=== PATIENT | female | born 1990 | race Caucasian/White ===

== ENCOUNTER 2020-03-26 07:53 | Day surgery (SDC) | payer BC ==
[2020-03-19 12:31] LABS: Urine Appearance CLEAR; Urine Bilirubin NEGATIVE (NEG); Urine Blood NEGATIVE (NEG); Urine Color YELLOW; Urine Glucose NEGATIVE (NEG); Urine Protein NEGATIVE (NEG); Urine Specific Gravity 1.015 (1.005-1.030); Urine Urobilinogen 0.2 mg/dL (0.2-1.0)
[2020-03-19 12:32] LABS: Absolute Lymphocytes (CBC) 2.1 K/uL (0.7-4.9); Basophils % 1.1 % (0-1.3); Hematocrit 40.2 % (36.0-45.0); Lymphocytes % 39.2 % (15.3-44.8); MPV 7.6 fL (7.6-11.3); RBC Red Blood Cell Count 4.78 M/uL (3.86-4.86)
[2020-03-19 12:41] LABS: Urine Microscopic Reflex ORDER UMIC
[2020-03-19 12:47] LABS: Urine Bacteria NONE SEEN /HPF (<20); Urine Culture Reflex Order REFLEXED; Urine RBC <5 /HPF (NONE SEEN)
[2020-03-25 10:41] LABS: Specific Gravity <= 1.005 (1.005-1.030)
[~2020-03-26 07:53] MED LIST: METHYLENE BLUE 0.5% 10 ML AMP ONE
[2020-03-26] MEDS ORDERED: LIDOCAINE 2% MPF 5 ML VIAL ONE (08:12)
[2020-03-26] MEDS ORDERED: FENTANYL CITR 100 MCG/2 ML ONE ×2 (08:12→09:48)
[2020-03-26] MEDS ORDERED: dexAMETHasone 10 MG/ML VIAL ONE (08:12)
[2020-03-26] MEDS ORDERED: propofoL 200 MG/20 ML VIAL IV ONE (08:12)
[2020-03-26] MEDS ORDERED: ONDANSETRON 4 MG/2 ML VIAL ONE ×2 (08:12→12:00)
[2020-03-26] MEDS ORDERED: ROCURONIUM 50 MG/5 ML VIAL IV ONE (08:12)
[2020-03-26] MEDS ORDERED: MIDAZOLAM HCL 2 MG/2 ML INJ ONE (08:12)
[2020-03-26] MEDS: BUPIVACAINE 0.25% PF 30 ML VIAL ONE ×2 (08:17→09:25)
[2020-03-26] MEDS ORDERED: Ringers Lactate 1,000 ML IV ONE ×2 (08:20→11:02)
[2020-03-26] MEDS ORDERED: SCOPOLAMINE HYDROBROMIDE PATCH TD ONE (08:20)
[2020-03-26] MEDS ORDERED: KETOROLAC 30 MG/ML INJ ONE (10:47)
[2020-03-26] MEDS: MEPERIDINE HCL 25 MG/ML SYR ONE ×2 (11:30→11:40)
[2020-03-26] MEDS: HYDROMORPHONE HCL 1 MG/ML INJ ONE ×2 (11:52→11:57)
[2020-03-26] MEDS ORDERED: MORPHINE 4 MG/ML SYR ONE (12:28)
[2020-03-26 12:37] VITALS: TEMP 97.2
[2020-03-26] MEDS ORDERED: HYDROCODONE/APAP 5/325 MG TAB ONE (12:59)
[2020-03-26 13:53] VITALS: BP 108/62; O2SAT 98
--- NOTE | 2020-04-02 02:46 | OP ---
Date of Procedure: 03/26/2020 Surgeon: Katerina Wilder MD Preoperative Diagnoses: Pelvic pain, endometriosis of the pelvic peritoneum. Postoperative Diagnoses: Pelvic pain; endometriosis; bowel adhesions, sigmoid to the left sidewall a nd the left tube and right ovary; small bowel adhesions to the right pelvic sidewall as well as to th e base of the right ovary; nodular, partially occluded left tube. Procedures Performed: Diagnostic hysteroscopy, diagnostic laparoscopy, lysis of the bowel adhesions, enterolysis of small and large bowel to greater than 50% of the case, chromotubation of the left tub e, left salpingectomy, right oophorectomy, and endometriosis removal from the surface, left ovariolys is. Anesthesia: General endotracheal. Specimens: Right ovary with endometriosis and left tube. Complications: No complications. Drains: No drains. Condition: Stable. Urine Output: 200. Estimated Blood Loss: Minimal. Intraoperative Consultation: Dr. Bauer for the bowel adhesions. Description Of Procedure: After informed consent was verified, the patient was taken back to the OR. No antibiotics were indicated for these procedures she was going to have. After consents were obta ined, her sister was present by the side. She was then taken to the OR and placed in supine fashion on the operating table, general anesthesia was given, placed in a dorsal lithotomy position using All en stirrups. Abdomen, vulva, vagina, and perineum were prepped and draped in a sterile fashion. Fol ey was placed to drain the bladder. A small speculum was placed to open the vaginal canal to expose the cervix. The anterior lip was grasped with single Allis clamps and dilator was used to open up th e cervical canal. Then, diagnostic SlimLine hysteroscope was introduced into the uterus to visualize the uterine cavity. Cavity was unremarkable. The scope was removed. Diagnostic VCare was introduc ed into the uterus and fixed in place. This area was then draped. 1 cm infraumbilical incision was made with a scalpel using the open laparoscopy technique. Fascia wa s incised, tagged with 0 Vicryl sutures. S-retractors were placed. Peritoneum picked up, incised sh arply, and then peritoneum was entered with S-retractors. Julio César was introduced, insufflated. Site of entry was checked, unremarkable. Right upper quadrant omental adhesions and some bowel adhesions after the patient's upper abdominal surfaces were well visualized and no endometriotic implants were seen. Then, the patient was placed in Trendelenburg and bowel adhesions of the sigmoid colon all the way from the left tube, periovarian adhesions to the left lateral sidewall, and the sigmoid adhesion s all the way down along the ureter close to the distal uterosacral ligament. Then, small bowel adhe sions were seen very close to the right lateral wall at the inferior aspect of the infundibulopelvic ligament and distal and proximal part of the ureter at the crossing of the iliacs. Five left lower quadrant suprapubic and right lower quadrant trocars were placed under direct vision after injecting Marcaine at the level of the skin and the fascia. The neuro bundle was present. There were some adhesions of this small bowel in the right lower quadrant as well. All these adhesio ns were taken down with sharp dissection with the help of scissors, so I can isolate and be able to w ell visualize the IP ligament. Once this was done, then the small bowel was retracted superiorly int o the abdomen. It had to be released further into the right lower quadrant in order for it to be mob ilized. So, when the patient was placed in Trendelenburg and the oophorectomy was being performed th at the bowel was not in my way. Once this was done and there was no endometriosis seen in this regio n, the left infundibulopelvic ligament was isolated and cauterized and the ovary was resected. The e ndometriosis appearing lesions were on the outer aspect and the lower pole of the ovary. This was pe rformed after talking to her mother regarding the diagnosis. She had chromotubation as well at this time and the left tube had very slight seepage of the methylene blue. So, given the distortion seen in the left tube, called the mother and consent was obtained for left salpingectomy and right oophore ctomy and then the surgery was performed. The sigmoid colon adhesions were first taken down from the left lateral wall below the natural attach ment and the tube was from the sigmoid colon and then the ovary was as well with sharp dissection. Then, in the left gutter, the space was opened up till the natural space was ident ified. Then, dissection was done sharply with the help of scissors to take down the colon from the l ateral wall carefully identifying the ureter and keeping it safe and leaving to the lateral aspect wh ile the bowel was taken out all the way to the distal uterosacral ligament on the left side. Once th e bowel was all mobilized and normal anatomy was restored, the course of the ureter was well visualiz ed. Then, the chromotubation was performed, and once the chromotubation results were seen and the mo m was called, then proceeded with oophorectomy and the left salpingectomy with the help of the LigaSu re device. The specimens were placed in an EndoCatch bag. The bag was removed through the umbilical trocar. Thorough irrigation and suction were performed, there was excellent hemostasis, and left ov ariolysis was performed at this time to release the ovary from the lateral sidewall. Once this was d one then thorough irrigation and suction, at least a liter of saline was used, then placed Interceed in the left paracolic gutter where the bowel was adhesed to the left side as well as the right paraco lic gutter on the sidewalls so that the small bowel did not adhese to the area of the ovary. After t horough inspection was done and all the pedicles were hemostatic, the patient was taken out of [facility], gas was desufflated, trocars were removed. Sites of entry checked and unremarkable. Gas wa s desufflated. Julio César was removed. Fascia at the umbilicus was closed with 0 Vicryl [id number] fashion. Then, all the 5 incisions were closed with the help of interrupted 4-0 Vicryl sutures at t he skin. The umbilical skin also was closed in a similar fashion. Injection was done again at the f ascia and the skin levels with 0.25% Marcaine. At the end of the case, VCare and Kinney were removed. Instrument, needle, and sponge counts were correct at the end of the case. The patient tolerated t he procedure well. One-week followup with me. Dr. Bauer was consulted to check the integrity of the small bowel after the dissection was performed as well as the large bowel and those were completely intact and he advised not to interfere with any minor superficial lacerations from taking down the adhesions on the small bowel. CATHRYN/HUGOL Voice ID: [id number] Report ID: [id number]
== END 2020-03-26 14:10 | disposition home or self-care (01) ==
LOC: OR 07:53
PROVIDERS: ATTEND Obstetrics & Gynecology
PROC: 3E1P78Z Irrigation of Female Reproductive using Irrigating Substance, Via Natural or Artificial Opening (ICD-10-PCS; 2020-03-26)
PROC: 0UB14ZZ Excision of Left Ovary, Percutaneous Endoscopic Approach (ICD-10-PCS; 2020-03-26)
PROC: 0UT04ZZ Resection of Right Ovary, Percutaneous Endoscopic Approach (ICD-10-PCS; 2020-03-26)
PROC: 0UT64ZZ Resection of Left Fallopian Tube, Percutaneous Endoscopic Approach (ICD-10-PCS; 2020-03-26)
PROC: 0UJD8ZZ Inspection of Uterus and Cervix, Via Natural or Artificial Opening Endoscopic (ICD-10-PCS; principal; 2020-03-26 09:00)
DX: N80.3 Endometriosis of pelvic peritoneum (principal); N94.89 Other specified conditions associated with female genital organs and menstrual cycle; E28.2 Polycystic ovarian syndrome; K66.0 Peritoneal adhesions (postprocedural) (postinfection); F41.9 Anxiety disorder, unspecified; J45.909 Unspecified asthma, uncomplicated; Z88.0 Allergy status to penicillin; Z91.040 Latex allergy status; Z20.828 Contact with and (suspected) exposure to other viral communicable diseases
CPT/HCPCS: 58661; 58350; 58662; 87088; 85025; 87086; 36415 ×2; 86900; 86850; 84703; 81025; 86901; 88302; 88305; 58555; U0002; J2704; J2250; J3010 ×2; J1100; J2175; J1170; J7120 ×2; J2405 ×2; 81003; 81015

== ENCOUNTER 2020-07-31 17:08 | Emergency (ER) | payer SELFPAY ==
--- NOTE | 2020-07-31 19:27 | ER ---
Nurse's Notes [facility] Name: Starr Paris Age: 29 yrs Sex: Female : 1990 Arrival Date: 07/31/2020 Time: 17:15 Bed Waiting Private MD: Diagnosis: Presentation: 07/31 17:25 Chief complaint: Patient states: Cough, SOB, chest pain, fatigue, RUFF 2 hours [employer]EP DOWN [employer]. ll1 Taking care of her mom and dad that have covid. No fever. Coronavirus screen: Client denies travel out of the [place] in the last 14 days. congestion, cough unrelated to allergies, difficulty breathing, fatigue, shortness of breath, Client presents with at least one sign or symptom that may indicate coronavirus-19. Standard/surgical mask placed on the client. Ebola Screen: Patient denies travel to an Ebola-affected area in the 21 days before illness onset. Initial Sepsis Screen: Does the patient meet any 2 criteria? HR > 90 bpm. No. Patient's initial sepsis screen is negative. Does the patient have a suspected source of infection? Yes: Productive cough/pneumonia. Risk Assessment: Do you want to hurt yourself or someone else? Patient reports no desire to harm self or others. Onset of symptoms was July 31, 2020. 17:25 Method Of Arrival: Ambulatory 1 17:25 Acuity: JACEY 3 ll1 Historical: - Allergies: 17:28 PENICILLINS; ll1 17:28 Latex, Natural Rubber; ll1 - PMHx: 17:28 asthma-2 intubations; ll1 - PSHx: 17:28 lap. hysteroscopy; stage 4 endometriosis; ll1 - Immunization history:: Flu vaccine is not up to date. - Social history:: Smoking status: Patient denies any tobacco usage or history of. Vital Signs: 17:25 BP 139 / 99; Pulse 94; Resp 18; Temp 97.7; Pulse Ox 97% on R/A; Weight 88.45 kg; Height ll1 5 ft. 4 in. (162.56 cm); Pain 7/10; 17:25 Body Mass Index 33.47 (88.45 kg, 162.56 cm) ll1 ED Course: 17:15 Patient arrived in ED. ds1 17:27 Triage completed. ll1 17:28 Arm band placed on. ll1 19:09 Francisco, Antonia, BELT FIXER-C [facility]. kb 19:09 Jony Almaraz MD is Attending Physician. kb 19:15 Patient Not in lobby or restroom when called to ED room. ll1 19:27 Patient Not in lobby or restroom when called back to ED room. ll1 Administered Medications: No medications were administered Outcome: 19:26 Patient left the ED. ll1 Signatures: Antonia Singh FNP-C FNP-Ckb Sanford, Demi ds1 Judith Rogel, RN RN ll1
[2020-07-31 19:38] VITALS: BP 139/99; TEMP 97.7; O2SAT 97
== END 2020-07-31 19:26 | disposition left against medical advice (07) ==
LOC: ER 17:08
DX: R05 Cough (principal); Z53.21 Procedure and treatment not carried out due to patient leaving prior to being seen by health care provider; Z88.0 Allergy status to penicillin; Z91.040 Latex allergy status
CPT/HCPCS: 99281

== ENCOUNTER 2023-11-30 07:43 | Day surgery (SDC) | payer BC, OTHER ==
[2023-11-28 09:19] LABS: Absolute Basophils 0.1 K/uL (0-0.5); Absolute Eosinophils 0.2 K/uL (0-0.5); Absolute Lymphocytes (CBC) 2.4 K/uL (0.7-4.9); Absolute Monocytes 0.7 K/uL (0.1-1.3); Absolute Neutrophil 3.7 K/uL (1.8-8.0); Basophils % 1.8 % (0-1.3); Eosinophils % 3.5 % (0-4.4); Hematocrit 37.9 % (36.0-45.0); Hemoglobin 12.5 g/dL (12.0-15.0); Lymphocytes % 33.5 % (15.3-44.8); MCH 27.7 pg (27.0-35.0); MCHC 32.9 g/dL (32.0-36.0); MCV 84.1 fL (80-100); MPV 6.4 fL (7.6-11.3); Neutrophils % 51.2 % (41.7-73.7); Nucleated Red Blood Cells % 0.1 % (0-0); Platelets 411 thou/uL (152-406); Red Cell Distribution Width 14.3 % (12.1-15.2)
[2023-11-28 09:31] LABS: Anion Gap 6.9 mEq/L (5.0-15.0); Potassium 3.9 mEq/L (3.5-5.1)
--- NOTE | 2023-11-28 14:10 | EKG ---
Test Date: 2023-11-28 Test Time: 09:08:45 Wheel Lacer And Truer: JAYSON MEASUREMENT RESULTS: Intervals: Rate: 85 VA: 158 QRSD: 80 QT: 358 QTc: 426 [place]: P: 62 VA: 158 QRS: 80 T: -19 INTERPRETIVE STATEMENTS: Normal sinus rhythm Nonspecific T wave abnormality Abnormal ECG No previous ECG available for comparison Electronically Signed On 11-28-23 14:09:23 CDT by Bossman Montero
[2023-11-30] MEDS ORDERED: OXYMETAZOLINE HCL 0.05% 15ML NAS ONE ×2 (08:13→11:21)
[2023-11-30] MEDS ORDERED: BACITRACIN OINTMENT 14 GM TUBE TOP ONE (08:13)
[2023-11-30] MEDS: Ringers Lactate 1,000 ML IV ONE (08:15)
[2023-11-30] MEDS: FAMOTIDINE 20 MG/2 ML VIAL IV ONE (08:18)
[2023-11-30] MEDS ORDERED: dexAMETHasone 10 MG/ML VIAL ONE (09:52)
[2023-11-30] MEDS ORDERED: ONDANSETRON 4 MG/2 ML VIAL ONE (09:52)
[2023-11-30] MEDS ORDERED: MIDAZOLAM HCL 2 MG/2 ML INJ ONE (09:52)
[2023-11-30] MEDS ORDERED: LIDOCAINE 2% MPF 5 ML VIAL ONE (09:52)
[2023-11-30] MEDS ORDERED: propofoL 200 MG/20 ML VIAL IV ONE (09:52)
[2023-11-30] MEDS ORDERED: FENTANYL CITR 100 MCG/2 ML ONE (09:52)
[2023-11-30] MEDS ORDERED: ROCURONIUM 50 MG/5 ML VIAL IV ONE (09:52)
[2023-11-30] MEDS ORDERED: SUGAMMADEX SODIUM 200 MG/2 ML VIAL IV ONE (10:02)
[2023-11-30] MEDS ORDERED: DEXMEDETOMIDINE HCL 200 MCG/2 ML VIAL ONE (10:03)
[2023-11-30] MEDS ORDERED: NA CHLORIDE 0.9% 100 ML ONE (10:03)
[2023-11-30] MEDS: LIDOCAINE HCL/EPINEPHRINE 20 ML MDV ONE (10:06)
[2023-11-30] MEDS: SCOPOLAMINE HYDROBROMIDE PATCH TD ONE (10:14)
[2023-11-30] MEDS: CLINDAMYCIN 900MG/D5W 900 MG/50 ML IVPB IV ONE (10:55)
[2023-11-30] MEDS ORDERED: SCOPOLAMINE HYDROBROMIDE PATCH TD ONE (11:47)
[2023-11-30] MEDS ORDERED: TRIAMCINOLONE ACETON 40 MG/ML VIAL ONE (12:27)
[2023-11-30] MEDS: HYDROMORPHONE HCL 1 MG/ML INJ ONE ×2 (13:40→13:55)
[2023-11-30] MEDS: FENTANYL CITR 100 MCG/2 ML ONE (14:15)
[2023-11-30 14:40] VITALS: TEMP 97
[2023-11-30] MEDS: PROMETHAZINE INJ 25 MG/ML AMP ONE (15:06)
[2023-11-30] MEDS: HYDROCODONE/APAP 7.5/325 MG TAB ONE (15:47)
[2023-11-30 17:51] VITALS: BP 142/88; O2SAT 97
--- NOTE | 2023-12-05 05:49 | OP ---
Date of Procedure: 11/30/2023 Surgeon: MARITZA ORONA Primary Care Physician: Unknown. Preoperative Diagnoses: 1.Recurrent acute maxillary and ethmoid sinusitis. 2.Nasal septal deviation. 3.Right sascha bullosa. 4.Bilateral hypertrophy of inferior nasal turbinates. Postoperative Diagnoses: 1.Recurrent acute maxillary and ethmoid sinusitis. 2.Nasal septal deviation. 3.Right sascha bullosa. 4.Bilateral hypertrophy of inferior nasal turbinates. Procedure: 1.Stereotactic CT image guidance system. 2.Bilateral sinus endoscopy. 3.Bilateral maxillary sinus balloon dilation. 4.Bilateral maxillary sinus lavage via cannulation. 5.Excision of right sascha bullosa. 6.Endoscopic septoplasty. 7.Bilateral submucosal ablation of inferior turbinates with Coblation. Anesthesia: General endotracheal anesthesia was administered. I also infiltrated approximately 12 m L of 1% lidocaine with 1:100,000 epinephrine into bilateral nasal septal mucosa, bilateral inferior t urbinate mucosa, bilateral axilla of middle turbinates, and bilateral uncinate processes. Specimens: Septal cartilage and bone removed, but not sent to Pathology. Estimated Blood Loss: Approximately 25 to 30 mL. Findings: Bilateral nasal obstruction secondary to bilateral inferior turbinate hypertrophy, large r ight sascha bullosa, bilateral maxillary infundibulum obstruction secondary to enlarged middle turbin ates, bilateral maxillary sinus effusions, bilateral ethmoid bulla inflammation and ethmoid sinus eff usion, bilateral nasal septal deviation with large left septal spur, and right midseptal superior car tilaginous deviation. Complications: None. Disposition: Stable. The patient tolerated the procedure well. Indication For Procedure: Patient is a pleasant 33-year-old female who presented to my outpatient cl [facility] on several occasions for recurrent sinusitis involving bilateral maxillary and ethmoid sinuses. CTA scan of the paranasal sinuses as well as my exam demonstrated bilateral nasal septal deviation a nd nasal obstruction and bilateral inferior turbinate hypertrophy and bilateral maxillary and ethmoid sinus mucosal thickening/effusion at least 3 mm in thickness. Her condition has been refractory to multiple rounds of antibiotics, thus these were indications to bring the patient to operative suite f or the above-mentioned procedure. She understood. All questions were answered. Risks versus benefi ts and complications were explained in detail and a consent form was signed which was placed on the c dinero. Description Of Procedure: The patient was transferred from the preoperative holding area to the oper ative suite by Anesthesia placed on the operating table in supine, sedated, and intubated in normal f ashion. Table was rotated at 180 degrees. I infiltrated approximately 8 mL of 1% lidocaine with 1:1 00,000 epinephrine into bilateral nasal septal and inferior turbinate mucosa. Afrin-soaked nasal ple dgets were introduced into bilateral nasal cavities and the patient was sterilely prepped and draped. The patient was then calibrated to the stereotactic CT image guidance system and tested it working ap propriately. Afrin-soaked nasal pledgets were removed and a 0-degree rigid nasal endoscope was intro duced in bilateral nasal cavities and photo documentation obtained. Our attention was placed to left maxillary sinus in which the natural ostium was located by infiltrating approximately 1 to 2 mL of 1 % lidocaine with 1:100,000 epinephrine at the left middle turbinate axilla and uncinate process and t hen reflecting in the middle turbinates medially with a Laurel elevator exposing the natural ostium. This was also confirmed with image guidance. The maxillary balloon was gently inserted into the left maxillary sinus and inflated twice to 12 mmHg and then deflated and removed. Cyclone irrigation sys tem was used for lavage. It was introduced into the left maxillary sinus and the left maxillary sinu s was lavaged with approximately 90 mL of sterile saline. Sinus effusion was removed. The Cyclone l avage system was removed from the left nasal cavity. Attention was placed to the right maxillary sin us in which the endoscope was introduced and the patient had a very large right middle turbinate and sascha bullosa. Thus, this was excised utilizing endoscopic scissors and Brooke forceps. Hemosta sis was achieved with suction Bovie on a setting of 20 for coagulation. I then was able to easily ac cess the right maxillary sinus utilizing the balloon and with the help of the image guidance. The ba lloon was then gently inserted into the right maxillary sinus, inflated it to 12 mmHg and then deflat ed and removed. The right maxillary sinus was lavaged with approximately 90 mL of sterile saline uti lizing the Cyclone irrigation system. was used. The lavage system was removed. Sinus ef fusion was suctioned. I then turned my attention to the left ethmoid bulla which was inflamed. I ut ilized a Tricut 4.3 microdebrider blade and this was entered into the ethmoid bulla and left anterior ethmoidectomy was performed on a setting of 3000 rpm. The microdebrider was removed and inserted in to the right nasal cavity and I entered the right ethmoid bulla utilizing the microdebrider Tricut an d right anterior ethmoidectomy was performed. Next, my attention was placed to the septum in which a modified Juancarlos incision was made into the le ft nasal septal mucosa down to the level of the perichondrium of the cartilaginous septum. The mucos a was elevated with a Laurel elevator and then a crossover incision was made with a #15 blade scalpel and the right nasal septal mucosa was dissected off the cartilaginous and bony septum. I was then ab le to isolate the cartilage and bone with a long nasal speculum and then anterior superior and inferi or cuts were made with a #15 blade scalpel and obstructed bone and cartilage were removed with Roddy ni forceps. A large left inferior septal spur to be removed with hammer and catie and Brooke fo rceps. I then reapproximated the nasal septal flaps in a box like fashion with 4-0 plain gut suture on a straight Karl needle, followed by mucosal incisional reapproximation with 4-0 plain gut suture in a continuous running fashion. My attention was then placed to the inferior turbinates, whereby th e anterior face of the left inferior turbinate was entered with the Coblation wand and a submucous po cket was created between the mucosa and bone. I then performed Coblation on 7 for ablation and 3 for coagulation of the left inferior turbinate. I then repeated this process on the right by entering t he anterior face of the right inferior turbinate mucosa creating submucous pockets between the mucosa and the bone and I ablated on the setting of 7 and coagulated on the setting of 3 and right inferior turbinate submucosal ablation was performed. Next, I coated MeroGel packs with Kenalog 10 mg/mL and inserted the packs at the area of the anterior ethmoidectomy to prevent scarring. This was followed by bilateral Guerrero splints which were inserted after coating with antibiotic ointment and securing the splints with a 2-0 Prolene suture on a strai ght Karl needle at the anterior septum. A mustache dressing was placed. She tolerated the procedur e well. She will be discharged home on antibiotic analgesic medication, will follow up in 10 days or sooner if needed. KEM/VAIBHAV Voice ID: [id number] Report ID: [id number]
== END 2023-11-30 16:20 | disposition home or self-care (01) ==
LOC: OR 07:43
PROVIDERS: ATTEND Otolaryngology Facial Plastic Surgery
PROC: 095L8ZZ Destruction of Nasal Turbinate, Via Natural or Artificial Opening Endoscopic (ICD-10-PCS; 2023-11-30)
PROC: 09QR4ZZ Repair Left Maxillary Sinus, Percutaneous Endoscopic Approach (ICD-10-PCS; 2023-11-30)
PROC: 09QQ4ZZ Repair Right Maxillary Sinus, Percutaneous Endoscopic Approach (ICD-10-PCS; 2023-11-30)
PROC: 09TL8ZZ Resection of Nasal Turbinate, Via Natural or Artificial Opening Endoscopic (ICD-10-PCS; 2023-11-30)
PROC: 09BV8ZZ Excision of Left Ethmoid Sinus, Via Natural or Artificial Opening Endoscopic (ICD-10-PCS; 2023-11-30)
PROC: 09BU8ZZ Excision of Right Ethmoid Sinus, Via Natural or Artificial Opening Endoscopic (ICD-10-PCS; 2023-11-30)
PROC: 09BM8ZZ Excision of Nasal Septum, Via Natural or Artificial Opening Endoscopic (ICD-10-PCS; principal; 2023-11-30 08:15)
DX: J34.2 Deviated nasal septum (principal); J34.3 Hypertrophy of nasal turbinates; J01.21 Acute recurrent ethmoidal sinusitis; J32.0 Chronic maxillary sinusitis
CPT/HCPCS: 30520; 30140; 31295; 31240; 31254; 93005; 85025; 80048; 36415; J2550; J2704; J3301; J2001; J2250; J3010 ×2; J1100; J1170 ×2; J2405; J7120

== ENCOUNTER 2024-02-03 20:42 | Emergency (ER) | payer OTHER ==
--- OUTSIDE RECORDS SUMMARY | 2024-02-03 20:45 | XMS REPORT | Continuity of Care Document ---
Author Name Unknown Address [address] [facility] [address] [place] [address] [facility] Address [address] [facility] [address] [place] [address] Care Team Providers Care Lace Mender Name Role Phone Douglas Oconnell Primary Care Physician GC_GCBZW_Kadijcarlosa_S Attending Clinician Unavailtiana keane RADIOLOGY Attending Clinician Unavailable Radiology Attending Clinician Unavailable Doctor Unassigned, [place] Attending Clinician U Beau Root DO Attending Clinician [phone] ANA SHAH Attending Clinician Unavailable GC_GCBZW_Kasusiea_S Admitting Clinician DOUGLAS Bella Admitting Clinician Unavailable Payers Payer Name Policy Type Policy Number Effective Date Expirati on Date Source BLUE ESSENTIALS O [id number] 00:00:00 [facility] ET Water [facility] [id number] 2023 00:00:00 [facility] [place] [id number] 2020 00:00:00 Problems Condition Name Condition Details Condition Category Status Onset Date Resolution Date Last Treatment Date Treating Clinician Comments Source Menopausal symptom Menopausal Symptom Problem Active 01-23 00:00: 00 [facility] Endometrio sis of pelvis Endometrio sis of Pelvis Problem Active 01-21 00:00: 00 [facility] Mixed anxiety and depressive disorder Mixed Anxiety and Depressive Disorder Problem Active 03-08 00:00: 00 [facility] Asthma Asthma Problem Active 2023-0 9-06 00:00: 00 [facility] Endometrio sis (clinical) Endometrio sis (Clinical) Problem Active 9-06 00:00: 00 [facility] Family history of breast cancer Family History of Breast Cancer Problem Active 7 00:00: 00 [facility] Deep pain on intercours e Deep Pain on Intercours e Problem Active 2-23 00:00: 00 [facility] Venereal disease screening Venereal Disease Screening Problem Active 2 00:00: 00 [facility] Long-term current use of selective estrogen receptor modulator Long-term Current Use of Selective Estrogen Receptor Modulator Problem Active 2 00:00: 00 [facility] Crohn's disease of small intestine Crohn's Disease of Small Intestine Problem Active 1-12 00:00: 00 [facility] Iron deficiency anemia Iron Deficiency Anemia Problem Active 707 00:00: 00 [facility] Moderate recurrent major depression Moderate Recurrent Major Depression Problem Active 1-06 00:00: 00 [facility] Female infertilit y of tubal origin Female Infertilit y of Tubal Origin Problem Active 1-06 00:00: 00 [facility] Constipati on Constipati on Problem Active 2018-07 216 00:00: 00 [facility] Abnormal weight gain Abnormal Weight Gain Problem Active 18 00:00: 00 [facility] Chronic salpingiti s Chronic Salpingiti s Problem Active 905 00:00: 00 [facility] Endometrio sis of pelvic peritoneum Endometrio sis of Pelvic Peritoneum Problem Active 02-07 00:00: 00 [facility] Gynecologi paddy examinatio n abnormal Gynecologi paddy Examinatio n Abnormal Problem Active 02-07 00:00: 00 [facility] Pelvic and perineal pain Pelvic and Perineal Pain Problem Active 02-07 00:00: 00 [facility] Major depression , single episode Major Depression , Single Episode Problem Active 12-14 00:00: 00 [facility] Polymenorr hea Polymenorr hea Problem Active 12-14 00:00: 00 [facility] Excessive menstruati on with irregular cycle Excessive Menstruati on with Irregular Cycle Problem Active 12-14 00:00: 00 [facility] Dyspareuni a Dyspareuni a Problem Active 2014-07 0- 00:00: 00 [facility] Anxiety state Anxiety State Problem Active 3-11 00:00: 00 [facility] Irregular periods Irregular Periods Problem Active 2013-07 1-14 00:00: 00 [facility] Allergies, Adverse Reactions, Alerts Allergy Name Allergy Type Status Severity Reaction(s) Onset Date Inactive Date Treating Clinician Comments Source Penicill ins Propensi ty to adverse reaction s Active Hives 03-27 00:00: 00 [facility] PENICILL INS Drug Class Active Hives 03-27 00:00: 00 [facility] Penicill ins Propensi ty to adverse reaction s Active Hives 03-27 00:00: 00 [facility] Latex Allergy to substanc e Active Hives [facility] LATEX GLOVES Allergy to substanc e Active [facility] PENICILL IN G BENZATHI NE Allergy to substanc e Active Hives [facility] PENICILL INS Allergy to substanc e Active Hives [facility] Social History Social Habit Start Date Stop Date Quantity Comments Source Sexual orientation U [facility] Exposure to SARS-CoV-2 (event) Not sure [facility] Sex Assigned At 1990 00:00:00 1990 00:00:00 [facility] Smoking Status Start Date Stop Date Source Tobacco smoking consumption unknown [facility] Never Smoker [facility] Medications Ordered Medication Name Filled Medication Name Start Date Stop Date Current Medication? Ordering Clinician Indication Dosage Frequency Signature (SIG) Comments Components Source buspirone 30 mg tablet 30 mg twice a day by oral route. buspirone 30 mg tablet 30 mg twice a day by oral route. 01-23 00:00: 00 No 30mg BID buspirone 30 mg tablet 30 mg twice a day by oral route. [facility] Wellbutrin XL 300 mg 24 hr tablet, extended release 300 mg every day by oral route. Wellbutrin XL 300 mg 24 hr tablet, extended release 300 mg every day by oral route. 01-23 00:00: 00 No 300mg Q1D Wellbutrin XL 300 mg 24 hr tablet, extended release 300 mg every day by oral route. [facility] gadobenate dimeglumine (MULTIHANCE -10 mL) injection 0.2 mL/kg 08-12 23:00: 00 08-12 22:56 :00 No [id number] .2mL/kg 0.2 mL/kg, Intravenou s, ONCE, 1 dose, On Mon08/12/22 at 1700, Routine [facility] magnesium sulfate in water 2 gram/50 mL (4 %) infusion 2 g 02-28 11:15: 00 02-28 11:46 :00 No 2g 2 g, IV Piggyback, ONCE, 1 dose, [place] 02/28/21 at 0615, Routine [facility] naloxone (NARCAN) injection 2 mg 02-28 11:15: 00 02-28 09:59 :00 No 2mg 2 mg, Slow IV Push, ONCE, 1 dose, [place] 02/28/21 at 0615, STAT [facility] NaCl 0.9% (NS) bolus infusion 1,000 mL 02-28 10:00: 00 02-28 11:46 :00 No 1000mL at 999 mL/hr, 1,000 mL, IV Infusion, ONCE, 1 dose, [place] 02/28/21 at 0500, STAT [facility] No known medications 03-27 13:14: 23 No No known medication s [facility] No known medications No Un tanna [facility] Cymbalta 60 mg capsule,del ayed release Take 1 capsule twice a day by oral route. Cymbalta 60 mg capsule,del ayed release Take 1 capsule twice a day by oral route. No 1capsul e(s) BID Cymbalta 60 mg capsule,de layed release Take 1 capsule twice a day by oral route. [facility] gabapentin 300 mg capsule 2 tabs by mouth; Twice a day; 30 day(s) gabapentin 300 mg capsule 2 tabs by mouth; Twice a day; 30 day(s) No gabapentin 300 mg capsule 2 tabs by mouth; Twice a day; 30 day(s) [facility] hydroxyzine HCl 50 mg tablet 100 mg as needed by oral route. hydroxyzine HCl 50 mg tablet 100 mg as needed by oral route. No 100mg hydroxyzin e HCl 50 mg tablet 100 mg as needed by oral route. [facility] Lunesta 3 mg tablet 1 tablet immediately before bedtime; Once a day Lunesta 3 mg tablet 1 tablet immediately before bedtime; Once a day No Lunesta 3 mg tablet 1 tablet immediatel y before bedtime; Once a day [facility] Medical Myfembree 40 mg-1 mg-0.5 mg tablet Take 1 tablet every day by oral route for 30 days. Myfembree 40 mg-1 mg-0.5 mg tablet Take 1 tablet every day by oral route for 30 days. No 1 Q1D Myfembree 40 mg-1 mg-0.5 mg tablet Take 1 tablet every day by oral route for 30 days. [facility] Medical Orilissa 200 mg tablet TAKE 1 TABLET BY MOUTH TWICE A DAY FOR 90 DAYS Orilissa 200 mg tablet TAKE 1 TABLET BY MOUTH TWICE A DAY FOR 90 DAYS No Orilissa 200 mg tablet TAKE 1 TABLET BY MOUTH TWICE A DAY FOR 90 DAYS [facility] Medical Vital Signs Vital Name Observation Time Observation Value Comments S ource BMI (Body Mass Index) 2024-01-24 00:00:00 47.4 kg/m2 [facility] BP Diastolic 2024-01-24 00:00:00 81 mm[Hg] [facility] BP Systolic 2024-01-24 00:00:00 138 mm[Hg] [facility] Body Weight 2024-01-24 00:00:00 276 [lb_av] [facility] Height 2024-01-24 00:00:00 64 [in_i] [facility] Systolic blood pressure 2021-02-28 11:00:00 105 mm[Hg] [facility] Diastolic blood pressure 2021-02-28 11:00:00 69 mm[Hg] [facility] Heart rate 2021-02-28 11:00:00 76 /min [facility] Respiratory rate 2021-02-28 11:00:00 16 /min [facility] Oxygen saturation in Arterial blood by Pulse oximetry 2021-02-28 11:00:00 99 /min [facility] Body temperature 2021-02-28 10:09:00 36.56 Yulia [facility] Body weight 2021-02-28 10:00:00 93.441 kg [facility] BMI 2021-02-28 10:00:00 35.36 kg/m2 [facility] Procedures Procedure Date / Time Performed Performing Clinician Source Nasal Septoplasty 2023-11-30 00:00:00 [facility] MR FEMUR LEFT W WO CONTRAST 2022-08-12 23:24:09 Requisition, Paper [facility] XR CHEST 2 VW 2022-07-20 16:15:52 [facility]W BILATERAL 2022-07-20 16:15:19 Requisition , Paper [facility] ASSIGNMENT OF BENEFITS 2022-07-20 15:37:21 Docto r Unassigned, [place] [facility] TROPONIN I 2021-02-28 10:21:00 Beau Hernandez [facility] COMP. METABOLIC PANEL ([id number]) 2021-02-28 10:21:00 Beau Hernandez [facility] ETHANOL 2021-02-28 10:21:00 Beau Hernandez [facility] TEST, SERUM 2021-02-28 10:18:00 Efren Hernandez [facility] SALICYLATE 2021-02-28 10:18:00 Beau Hernandez [facility] CBC WITH DIFF 2021-02-28 10:18:00 Beau Hernandez [facility] URINE DRUG (IMMUNOASSAY) - COMPREHENSIVE DRUG SCREEN 2021-02-28 10:17:00 Beau Hernandez [facility] URINALYSIS 2021-02-28 10:17:00 Beau Hernandez [facility] ASSIGNMENT OF BENEFITS 2021-02-28 10:07:32 Docto r Unassigned, [place] [facility] NOTICE OF PRIVACY PRACTICES 2021-02-28 10:07:17 Doctor Unassigned, [place] [facility] CONSENT/REFUSAL FOR DIAGNOSIS AND TREATMENT 2021-02-28 10:07:03 Doctor Unassigned, [place] [facility] Endoscopy 2020-07-03 00:00:00 [facility] Laparoscopy 2020-03-26 00:00:00 [facility] Laparoscopy 2017-01-31 00:00:00 At[facility] Laparoscopy 2014-07-03 00:00:00 Atiya [facility] Remove Tonsils and Adenoids [facility] Start Date/Time End Date/Time Encounter Type Admission Type Attending [facility] Care Facility Care Department Encounter ID Source 2021-05-03 18:49:35 Emergency [facility] [id number] [facility] 2024-01-24 00:00:00 2024-01-24 00:00:00 Katerina Wilder MD: [address] [place] [address] Dr Schultz, [place] [address], [place] [address] , Ph. [facility] - [facility]GCBZW_[facility]* [id number] [facility] 2023-09-03 00:00:00 2023-09-03 00:00:00 Outpatient GC_GCBZW_Ka diyala_S PRIV PRIV [id number] [facility] 2023-08-11 00:00:00 2023-08-11 00:00:00 Outpatient GC_GCBZW_Ka diyala_S PRIV PRIV [id number] [facility] 2023-07-14 00:00:00 2023-07-14 00:00:00 Outpatient GC_GCBZW_Ka diyala_S PRIV PRIV [id number] [facility] 2023-06-17 00:00:00 2023-06-17 00:00:00 Outpatient GC_GCBZW_Ka diyala_S PRIV PRIV [id number] [facility] 2023-03-18 00:00:00 2023-03-18 00:00:00 Outpatient GC_GCBZW_Ka diyala_S PRIV PRIV [id number] [facility] 2023-03-18 00:00:00 2023-03-18 00:00:00 Outpatient GC_GCBZW_Ka diyala_S PRIV PRIV [id number] [facility] Medical 2023-03-09 00:00:00 2023-03-09 00:00:00 Outpatient GC_GCBZW_Ka diyala_S PRIV PRIV [id number] [facility] Medical 2023-03-09 00:00:00 2023-03-09 00:00:00 Outpatient GC_GCBZW_Ka diyala_S PRIV PRIV [id number] [facility] 2023-02-20 00:00:00 2023-02-20 00:00:00 Outpatient GC_GCBZW_Ka diyala_S PRIV PRIV [id number] [facility] 2023-02-17 00:00:00 2023-02-17 00:00:00 Outpatient GC_GCBZW_Ka diyala_S PRIV PRIV [id number] [facility] 2022-08-12 15:30:57 2022-08-12 23:59:00 Outpatient R RADIOLOGY [facility] [id number] [facility] 2022-08-12 15:30:57 2022-08-12 23:59:00 Hospital Encounter Radiology [facility] 1.840.114 350.1.13.10 4.2.7.2.686 [id number] [facility] 2022-08-10 00:00:00 2022-08-10 00:00:00 Patient Secure Msg Doctor Unassigned, [place] [facility] 1.840.114 350.1.13.10 4.2.7.2.686 [id number] [facility] 2022-07-21 00:00:00 2022-07-21 00:00:00 Outpatient R RADIOLOGY [facility] [id number] [facility] 2022-07-20 09:47:55 2022-07-20 23:59:00 Hospital Encounter Radiology [facility] .840.114 350.1.13.10 4.2.7.2.686 [id number] [facility] 2022-07-20 09:47:42 2022-07-20 23:59:00 Hospital Encounter Radiology [facility] 1.2.840.114 350.1.13.10 4.2.7.2.686 [id number] [facility] 2022-07-20 09:47:31 2022-07-20 23:59:00 Hospital Encounter Radiology [facility] 1.2.840.114 350.1.13.10 4.2.7.2.686 [id number] [facility] 2022-07-20 09:45:00 2022-07-20 09:46:00 Hospital Encounter Radiology [facility] 1.2.840.114 350.1.13.10 4.2.7.2.686 [id number] [facility] 2022-07-20 00:00:00 2022-07-20 09:46:00 Outpatient R RADIOLOGY [facility] [id number] [facility] 2022-07-20 00:00:00 2022-07-20 00:00:00 Orders Only Doctor Unassigned, [place] [facility] 1.2.840.114 350.1.13.10 4.2.7.2.686 [id number] [facility] 2021-02-28 04:55:00 2021-02-28 06:50:00 Emergency Beau Hernandez [facility] 1.2.840.114 350.1.13.10 4.2.7.2.686 [id number] [facility] 2021-02-09 00:00:00 2021-02-09 00:00:00 Outpatient R ANA SHAH [facility] [id number] [facility] 2020-08-10 00:00:00 2020-08-10 00:00:00 Outpatient R RADIOLOGY [facility] [id number] [facility] Results Test Description Test Time Test Comments Results Result Co mments Source [facility] 11:30:03* Test Item Value Reference Range Interpretation Comme nts SALICYLATE (test code = 6339297234) <10 mg/L GEORGE (test code = GEORGE) [facility], [id number] 11:23:13* Test Item Value Reference Range Interpretation Comme nts PREG SERUM (test code = 8175246823) Negative GEORGE (test code = GEORGE) [facility] [id number] 11:19:48* Test Item Value Reference Range Interpretation Comme nts TROPONIN I (test code = 3610310742) 0.001 ng/mL See_Comment [Automated [employer] ge] The system which generated this result transmitted reference range: <=0.034. The reference range was not used to interpret this result as normal/abnormal. GEORGE (test code = GEORGE) Lab Interpretation (test code = 15757-7) Normal [facility]21-[facility] 11:17:21* Test Item Value Reference Range Interpretation Comme nts ALCOHOL (test code = 9442440142) <10 mg/dL GEORGE (test code = GEORGE) [facility]OLIC PANEL (59268)2021-02-28 11:09:05* Test Item Value Reference Range Interpretation Comme nts NA (test code = 9471612880) 139 mmol/L 135-145 K (test code = 2072787527) 3.8 mmol/L 3.5-5.0 CL (test code = 2730519793) 100 mmol/L 98-108 CO2 TOTAL (test code = 7484515672) 27 mmol/L 23-31 AGAP (test code = 9118770568) 2-16 BUN (test code = 2443363158) 18 mg/dL 7-23 GLUCOSE (test code = 4368100235) 93 mg/dL 70-110 CREATININE (test code = 7329311259) 0.84 mg/dL 0.50-1.04 TOTAL BILI (test code = 9751118961) 0.4 mg/dL 0.1-1.1 CALCIUM (test code = 2306489033) 10.0 mg/dL 8.6-10.6 T PROTEIN (test code = 2119853189) 7.7 g/dL 6.3-8.2 ALBUMIN (test code = 4322029906) 4.9 g/dL 3.5-5.0 ALK PHOS (test code = 7738475158) 90 U/L 34-122 ALTv (test code = 1742-6) 20 U/L 5-35 AST(SGOT) (test code = 4740348244) 37 U/L 13-40 eGFR (test code = 9876701490) mL/min/1.73m2 GEORGE (test code = GEORGE) [facility]SA[facility] - COMPREHENSIVE DRUG [id number] 11:04:08* Test Item Value Reference Range Interpretation Comme nts AMPHET (test code = 2608850178) Negative Negative ISABELL U (test code = 7062102406) Negative Negative BENZO U (test code = 3663588545) Negative Negative Cocaine Metabolite (test cod e = 8376627404) Negative Negative METHADONE (test code = 4185030658) Negative Negative OPIATES (test code = 2536227421) Negative Negative PCP (test code = 9354180979) Negative Negative THC (test code = 2986376193) Negative Negative GEORGE (test code = GEORGE) Lab Interpretation (test cod e = 18898-5) Normal [facility] WITH [id number] 10:52:24* Test Item Value Reference Range Interpretation Comme nts WBC (test code = 6690-2) See_Comment [Automated [employer] ge] The system which generated this result transmitted reference range: 4.30 - 11.10 10*3/?L. The reference range was not used to interpret this result as normal/abnormal. RBC (test code = 789-8) See_Comment [Automated [employer] ge] The system which generated this result transmitted reference range: 3.93 - 5.25 10*6/?L. The reference range was not used to interpret this result as normal/abnormal. HGB (test code = 718-7) 13.5 g/dL 11.6-15.0 HCT (test code = 4544-3) 41.2 % 35.7-45.2 MCV (test code = 787-2) 82.6 fL 80.6-95.5 MCH (test code = 785-6) 27.1 pg 25.9-32.8 MCHC (test code = 786-4) 32.8 g/dL 31.6-35.1 RDW-SD (test code = 00377-7) 44.5 fL 39.0-49.9 RDW-CV (test code = 788-0) 14.8 % 12.0-15.5 PLT (test code = 777-3) See_Comment [Automated messa ge] The system which generated this result transmitted reference range: 166 - 358 10*3/?L. The reference range was not used to interpret this result as normal/abnormal. MPV (test code = 45137-7) 9.3 fL 9.5-12.9 L NRBC/100 WBC (test code = 1336515845) See_Comment [Automated [employer] ssage] The system which generated this result transmitted reference range: 0.0 - 10.0 /100 WBCs. The reference range was not used to interpret this result as normal/abnormal. NRBC x10^3 (test code = 6007112865) <0.01 See_Comment [Automated [employer] ge] The system which generated this result transmitted reference range: 10*3/?L. The reference range was not used to interpret this result as normal/abnormal. GRAN MAT (NEUT) % (test code = 770-8) 60.9 % IMM GRAN % (test code = 5415705424) 0.50 % LYMPH % (test code = 736-9) 25.6 % MONO % (test code = 5905-5) 10.9 % EOS % (test code = 713-8) 1.2 % BASO % (test code = 706-2) 0.9 % GRAN MAT x10^3(ANC) (test code = 9354377491) 4.02 10*3/uL 1.88-7.09 IMM GRAN x10^3 (test code = 1582660700) 0.03 10*3/uL 0.00-0.06 LYMPH x10^3 (test code = 731-0) 1.69 10*3/uL 1.32-3.29 MONO x10^3 (test code = 742-7) 0.72 10*3/uL 0.33-0.92 EOS x10^3 (test code = 711-2) 0.08 10*3/uL 0.03-0.39 BASO x10^3 (test code = 704-7) 0.06 10*3/uL 0.01-0.07 Lab Interpretation (test code = 30449-8) Abnormal [facility] 10:46:55* Test Item Value Reference Range Interpretation Comme nts APPEARANCE (test code = 9280470124) Hazy Clear A COLOR (test code = 5227667317) Yellow Yellow PH (test code = 8503208725) 4.8-8.0 SP GRAVITY (test code = 3856276782) 1.003-1.030 GLU U QUAL (test code = 8838949532) Normal Normal BLOOD (test code = 4735500130) Negative Negative KETONES (test code = 7863194054) 80 mg/dL Negative A PROTEIN (test code = 2887-8) 30 mg/dL Negative A UROBILIN (test code = 0644194527) Normal Normal BILIRUBIN (test code = 8712392438) Negative Negative NITRITE (test code = 6950772160) Negative Negative LEUK JEFF (test code = 4412072903) Negative Negative RBC/HPF (test code = 0732553745) See_Comment [Automated [employer]] The system which generated this result transmitted reference range: 0 - 3 HPF. The reference range was not used to interpret this result as normal/abnormal. WBC/HPF (test code = 2342559651) See_Comment [Automated [employer]] The system which generated this result transmitted reference range: 0 - 5 HPF. The reference range was not used to interpret this result as normal/abnormal. BACTERIA (test code = 6851016122) Negative Negative MUCOUS (test code = 6199486268) Slight Negative LPF A SQ EPITH (test code = 5560309331) HPF HYAL CAST (test code = 7282787062) See_Comment H [Automated [employer]] The system which generated this result transmitted reference range: <=2 LPF. The reference range was not used to interpret this result as normal/abnormal. Lab Interpretation (test code = 33381-9) Abnormal [facility]
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
[2024-02-04 07:17] VITALS: BP 129/90; TEMP 98.7; O2SAT 99
== END 2024-02-04 02:08 | disposition left against medical advice (07) ==
LOC: ER 20:42
DX: Z02.9 Encounter for administrative examinations, unspecified (principal)
CPT/HCPCS: 99281